=== PATIENT | male | born 1985 | race Caucasian/White ===

== ENCOUNTER 2020-11-10 04:35 | Emergency (ER) | payer BC, OTHER ==
[~2020-11-10] VITALS: Ht 167.6 cm; Wt 95.3 kg
[2020-11-10] MEDS ORDERED: PREDNISONE 20 M20 M1 PO (05:54)
[2020-11-10] MEDS ORDERED: BENADRYL25 MG PO ×3 (05:54→05:57)
[2020-11-10] MEDS ORDERED: PREDNISONE 20 M20 MG PO ×2 (05:55→05:57)
[2020-11-10 06:09] VITALS: BP 111/71
== END 2020-11-10 06:11 | disposition home or self-care (01) ==
LOC: ER 04:35
DX: T78.49XA Other allergy, initial encounter (principal); T65.91XA Toxic effect of unspecified substance, accidental (unintentional), initial encounter; R06.02 Shortness of breath; H57.89 Other specified disorders of eye and adnexa; H53.8 Other visual disturbances; H53.149 Visual discomfort, unspecified; X58.XXXA Exposure to other specified factors, initial encounter; Y92.89 Other specified places as the place of occurrence of the external cause